=== PATIENT | female | born 1985 | race Caucasian/White ===

== ENCOUNTER 2021-06-10 20:31 | Emergency (ER) | payer MEDICAID ==
[~2021-06-10] VITALS: Ht 165.1 cm; Wt 70.3 kg
[2021-06-10 21:04] LABS: BASOPHILS # (AUTO) 0.1 K/uL (0.0-0.2); BASOPHILS % (AUTO) 0.8 % (0.0-2.0)
--- NOTE | 2021-06-10 21:05 | NUR ---
blood collected and sent to lab
[2021-06-10 21:08] LABS: EOSINOPHILS % (AUTO) 0.6 % (0.0-6.0); HEMATOCRIT 36 % (33-45); HEMOGLOBIN 12.4 g/dL (11.5-14.8); LYMPHOCYTES # (AUTO) 1.7 K/uL (0.8-4.8); LYMPHOCYTES % (AUTO) 14.5 % (20.0-44.0); MEAN CORPUSCULAR HGB CONC 34 g/dl (31.0-36.0); MEAN CORPUSCULAR VOLUME 90 fL (82-100); NEUTROPHILS # (AUTO) 8.6 K/uL (1.8-8.9); NEUTROPHILS % (AUTO) 75.1 % (43.0-81.0); RED BLOOD CELL COUNT(AUTO) 4.05 MIL/uL (4.0-5.2); WHITE BLOOD COUNT (AUTO) 11.5 K/uL (4.3-11.0)
--- NOTE | 2021-06-10 21:11 | NUR ---
urine collected and sent to lab
[2021-06-10 21:15] LABS: CARBON DIOXIDE 23 mmol/L (21-32); CHLORIDE 103 mmol/L (98-107); CREATININE 0.6 mg/dL (0.6-1.3); GLUCOSE 130 mg/dL (74-106); POTASSIUM 3.5 mmol/L (3.5-5.1); SODIUM SERUM 135 mmol/L (136-145); UREA NITROGEN, BLOOD 10 mg/dL (7-18)
[2021-06-10 21:24] LABS: PLATELET COUNT (AUTO) 149 K/uL (150-450)
[2021-06-10 21:26] LABS: EOSINOPHILS % (MANUAL) 1 % (0-4); LYMPHOCYTES % (MANUAL) 18 % (16-48); MONOCYTES % (MANUAL) 6 % (0-11.0); NEUTROPHILS % (MANUAL) 75 (42-76)
[2021-06-10 22:36] VITALS: BP 107/65
--- NOTE | 2021-06-10 22:36 | NUR ---
Patient discharged to home in stable condition. Written and verbal after care instructions given. Patient verbalizes understanding of instruction.IV removed. Catheter intact and site benign. Pressure and 4x4 applied to site. No bleeding noted. Pt ambulatory with a steady gait
== END 2021-06-10 22:37 | disposition home or self-care (01) ==
LOC: ER 20:42
DX: O99.413 Diseases of the circulatory system complicating pregnancy, third trimester (principal); R00.2 Palpitations; Z3A.35 35 weeks gestation of pregnancy
CPT/HCPCS: 36415; 80048-TC; 84443-TC; 84484-TC; 84703-TC; 85025-TC

== ENCOUNTER 2021-07-22 14:05 | Emergency (ER) | payer MEDICAID ==
[~2021-07-22] VITALS: Ht 152.4 cm; Wt 64.0 kg
--- NOTE | 2021-07-22 14:45 | NUR ---
FEVER, ABDOMINAL PAIN W/ N/V/D THAT STARTED YESTERDAY. TOOK TYLENOL THIS AM. C SECTION DELIVERY 06/18/21. PT AAOX4, RR EVEN & UNLABORED. DENIES CP, SOB, DIZZINESS AT THIS TIME. AWAITING EVAL BY ELIZABETH/PA. WILL CONT TO MONITOR.
--- NOTE | 2021-07-22 16:05 | NUR ---
KRYSTIN WAYNE AT BS FOR [place].
[2021-07-22] MEDS ORDERED: ACETAMINOPHEN ES 500 MG TABLET ONE (16:17)
[2021-07-22] MEDS ORDERED: ACETAMINOPHEN ES 500 MG TABLET PO ONE (16:30)
[2021-07-22] MEDS ORDERED: IV NS 0.9% 1,000 ML BAG IV ONE (16:30)
[2021-07-22 16:48] LABS: BASOPHILS % (AUTO) 0.3 % (0.0-2.0); HEMATOCRIT 44 % (33-45); HEMOGLOBIN 14.5 g/dL (11.5-14.8); LYMPHOCYTES % (AUTO) 10.2 % (20.0-44.0); MEAN CORPUSCULAR HGB CONC 33 g/dl (31.0-36.0); MEAN CORPUSCULAR VOLUME 88 fL (82-100); MONOCYTES # (AUTO) 0.5 K/uL (0.1-1.30); MONOCYTES % (AUTO) 5.5 % (2.0-12.0); NEUTROPHILS # (AUTO) 7.9 K/uL (1.8-8.9); PLATELET COUNT (AUTO) 200 K/uL (150-450); WHITE BLOOD COUNT (AUTO) 9.4 K/uL (4.3-11.0)
--- NOTE | 2021-07-22 16:49 | NUR ---
MEDICATED PER ERMD ORDER, PT YAHAIRA WELL. NASAL SWAB DONE & SENT TO LAB.
[2021-07-22 17:24] LABS: ALBUMIN 3.8 g/dL (3.4-5.0); BILIRUBIN,DIRECT 0.1 mg/dL (0.0-0.2); BILIRUBIN,TOTAL 0.4 mg/dL (0.2-1.0); CALCIUM, SERUM 9.1 mg/dL (8.5-10.1); CREATININE 0.6 mg/dL (0.6-1.3); POTASSIUM 3.6 mmol/L (3.5-5.1); TOTAL PROTEIN, SERUM 8.5 g/dL (6.4-8.2)
[2021-07-22 18:10] LABS: BILIRUBIN,URINE Negative (NEGATIVE); COLOR,URINE YELLOW (YELLOW); LEUKOCYTE ESTERASE ,URINE Moderate (NEGATIVE); NITRITE, URINE Negative (NEGATIVE); PROTEIN,URINE Negative (NEGATIVE); UGLUCOSE Negative (NEGATIVE); UROBILINOGEN,URINE 0.2 EU/dL (0.2)
[2021-07-22 18:33] LABS: BACTERIA,URINE Few /HPF (None Seen); SQUAMOUS EPITHELIAL CELL,UR Few /HPF (None Seen)
[2021-07-22] MEDS ORDERED: ACET-2605 PO (18:45)
[2021-07-22] MEDS ORDERED: CEPH500T PO (18:45)
[2021-07-22] MEDS ORDERED: CEFTRIAXONE 1GM BAG (ER ONLY) 50 ML IV ONE (18:57)
[2021-07-22] MEDS ORDERED: CEFTRIAXONE 1GM BAG (ER ONLY) 1 GM/50 ML PIGGYBACK IV ONE (19:00)
[2021-07-22 19:28] VITALS: BP 108/68
--- NOTE | 2021-07-22 19:28 | NUR ---
Patient discharged to home in stable condition. Written and verbal after care instructions given. Patient verbalizes understanding of instruction. IV removed. Catheter intact and site benign. Pressure and 4x4 applied to site. No bleeding noted.
== END 2021-07-22 19:29 | disposition home or self-care (01) ==
LOC: ER 14:09
DX: N39.0 Urinary tract infection, site not specified (principal); R50.9 Fever, unspecified; Z20.822 Contact with and (suspected) exposure to COVID-19
CPT/HCPCS: 71045; 80048; 80076; 81001; 83605; 84702; 85025; 85730; 87040 ×2; 87086; 87426; 87804; 96361; 96365; 99284; J0696; J7030; U0003; 36415; C9803